=== PATIENT | female | born 1960 | race Caucasian/White ===

== ENCOUNTER 2019-04-17 09:20 | Outpatient (CLI) | payer OTHER, SELFPAY ==
--- NOTE | 2019-04-17 09:22 | MM_ITS ---
WS: [id number] DIAGNOSTIC RIGHT DIGITAL MAMMOGRAM WITH CAD and displacement views. HISTORY: LEFT mastectomy. RIGHT breast implant. COMPARISON: 12/07/2017, 01/21/2016 and 08/13/2013 Technique: CC, MLO and ML views. Implant displacement views. Breast composition: The breast is heterogeneously dense, which may obscure small masses. Implant is prepectoral implant. No collapse. Dense fibroglandular tissue is within the anterior breast. There ar e no suspicious masses or calcifications or interval change. MM/[place] [id number] IMPRESSION: BI-RADS: 2-Benign FOLLOW UP: 1 Year Follow-up
== END 2019-04-17 09:21 | disposition home or self-care (01) ==
LOC: RADSHAW 09:21
PROVIDERS: Family Provider Nurse Practitioner Family; PCP Nurse Practitioner Family; Visit Provider Nurse Practitioner Family
DX: Z85.3 Personal history of malignant neoplasm of breast (principal)
CPT/HCPCS: 77065

== ENCOUNTER 2020-12-17 11:42 | Outpatient (CLI) | payer OTHER, SELFPAY ==
--- NOTE | 2020-12-17 11:45 | MM_ITS ---
WS: [id number] RIGHT diagnostic MAMMOGRAM WITH GEO DISPLACEMENT VIEWS. CAD PERFORMED. HISTORY: HX OF BREAST CA COMPARISON: 04/17/2019, 12/07/2017 Bilateral craniocaudal and mediolateral like views are performed. Geo displacement views in CC and MLO projection also performed. Breasts composition: There are scattered areas of fibroglandular density. Breast implant is intact. No suspicious masses or calcifications or interval change. Very dense fibro glandular tissue within the anterior breast. MM/[place] [id number] IMPRESSION: BI-RADS: 2-Benign FOLLOW-UP: 1 Year Follow-up
== END 2020-12-17 11:43 | disposition home or self-care (01) ==
LOC: RADSHAW 11:44
PROVIDERS: PCP Nurse Practitioner; Visit Provider Nurse Practitioner
DX: Z85.3 Personal history of malignant neoplasm of breast (principal)
CPT/HCPCS: 77065

== ENCOUNTER → 2022-01-13 13:16 | Outpatient (BNVA) | payer MEDICAID, SELFPAY | PROVIDERS: PCP Nurse Practitioner; Visit Provider Podiatrist Foot & Ankle Surgery | DX: M20.21 Hallux rigidus, right foot (principal); Q82.8 Other specified congenital malformations of skin; M19.071 Primary osteoarthritis, right ankle and foot; M21.611 Bunion of right foot | CPT/HCPCS: 73630 ==

== ENCOUNTER 2022-02-03 11:54 | Outpatient (CLI) | payer MEDICAID, SELFPAY ==
--- NOTE | 2022-02-03 12:19 | US_ITS ---
WS: [id number] INDICATION: Lump RIGHT upper extremity TECHNIQUE: Ultrasound soft tissue area of concern. FINDINGS: 2 echogenic shadowing foci in the area of concern RIGHT posterior lower arm measuring 4 to 6 mm in the subcutaneous soft tissues. These are nonspecific but may represent small subcutaneous alexander cified granulomas. No drainable fluid collection or abscess. US/US soft tissue/extremity [id number] IMPRESSION: 2 echogenic shadowing foci in the area of concern RIGHT posterior l ower arm measuring 4 to 6 mm. These are nonspecific but may represent small sub cutaneous calcified granulomas. Recommend correlation with history of foreign b je in this location.
--- NOTE | 2022-02-03 12:42 | MM_ITS ---
WS: [email or web address] RIGHT 3D TOMOSYNTHESIS DIGITAL MAMMOGRAPHY WITH CAD CLINICAL INFORMATION: HX OF BREAST CA HISTORY: LEFT mastectomy. COMPARISON: 2020 TECHNIQUE: 3 views of the right breast were obtained. FINDINGS: The right breast is composed of heterogeneous fibroglandular density tissue, which can limit the dete ction of small underlying mass lesions. Breast implant is intact. Stable dense fibroglandular tissue in the anterior RIGHT breast. A few tiny punctate calcifications anterior RIGHT breast. No suspicious focal mass, asymmetry, calcifications, or architectural distortion. No evidence of mary gnancy. MM/[place] [id number] IMPRESSION: BI-RADS: 2-Benign FOLLOW UP: 1 Year Follow-up Recommend return to annual diagnostic mammography.
== END 2022-02-03 11:55 | disposition home or self-care (01) ==
LOC: RAD 11:55
PROVIDERS: PCP Nurse Practitioner; Visit Provider Nurse Practitioner
DX: Z85.3 Personal history of malignant neoplasm of breast (principal); R22.31 Localized swelling, mass and lump, right upper limb
CPT/HCPCS: 76882; 77061; G0279

== ENCOUNTER → 2022-03-05 11:56 | Outpatient (BNVA) | payer MEDICAID, SELFPAY | PROVIDERS: PCP Nurse Practitioner; Visit Provider Nurse Practitioner | DX: J44.1 Chronic obstructive pulmonary disease with (acute) exacerbation (principal) | CPT/HCPCS: 71046 ==

== ENCOUNTER 2022-03-25 05:59 | Day surgery (SDC) | payer MEDICAID, SELFPAY ==
[2022-03-24 11:25] VITALS: BMI 23.8
--- NOTE | 2022-03-25 | XR_ITS ---
WS: [email or web address] XR foot RT 2V [id number] REASON FOR EXAM: Right 1st MTPJ fusion FINDINGS: Image demonstrates plate and screw arthrodesis of the first MTP joint with osteotomy of the distal fi rst metatarsal. Surgical surgical appliances are in proper position and alignment. The joint alignment is appropriate . XR/XR foot RT 2V [id number] IMPRESSION: Right first MTP arthrodesis and osteotomy without abnormality.
[2022-03-25 06:19] VITALS: BP 145/90; PULSE 96; RESP 18; TEMP 36.3; O2SAT 94
[2022-03-25] MEDS: sodium chloride 0.9% 1,000 ML 30 ML IV (06:31)
[2022-03-25] MEDS: gabapentin 300 mg Capsule PO (06:32)
[2022-03-25] MEDS: CELEcoxib 200 mg Capsule 400 MG PO (06:32)
--- NOTE | 2022-03-25 06:38 | W.PM.OPSUD ---
Surgery/Procedure H&P Update DATE OF PROCEDURE: March 25, 2022 DATE H&P PERFORMED: 03/17/22 CHANGES TO PREVIOUS DOCUMENTATION: No changes PREOP DIAGNOSIS: Right foot hallux rigidus PLANNED PROCEDURE: Operation Date: 03/25/22 07:00 Proposed Procedures p Right 1st MTPJ fusion?04767,M20.21(Right) - Justin Burk DPM
[2022-03-25] MEDS: clindamycin 600 MG/50 ML PREMIX 100 MG IV (07:00)
--- NOTE | 2022-03-25 08:21 | ANES.PREANE2 ---
Pre-Anesthetic Assessment Height/Weight: Height 1.65 m Weight 64.864 kg Temp Pulse Resp BP Pulse Ox O2 Del Method 97.4 F L 96 18 145/90 94 03/25/22 06:19 03/25/22 06:19 03/25/22 06:19 03/25/22 06:19 03/25/22 06:19 03/25/22 06:19 Preop Diagnosis: Right foot hallux rigidus Operation Date: 03/25/22 07:00 Proposed Procedures p Right 1st MTPJ fusion?86957,M20.21(Right) - Justin Burk DPM Familial anesthetic complications: none Was Beta Tamara taken within 24 hours: N/A Was Clonidine taken within 24 hours: N/A Last intake: Intake Last Liquid Date 03/24/22 Last Liquid Time 23:30 Last Solid Date 03/24/22 Last Solid Time 20:00 Social Tobacco and No alcohol Exam alert, oriented x 3 and regular rate & rhythm rhonchi Airway Submandibular: within normal limits Cervical ROM: within normal limits Mallampati: Class II Dentition: chipped Pulmonary Chronic Obstructive Pulmonary Disease CV/HEM Hypertension Metabolic Hyperlipidemia Anesthetic Plan ASA status: 3 Anesthesia: Choice Medications/Allergies Home Medications Medication Instructions Recorded Confirmed Last Taken Type lisinopril 10 mg tablet 10 mg PO DAILY 01/13/22 03/24/22 03/24/22 History albuterol sulfate 90 mcg/actuation 2 inh inhalation Q4H PRN Allergy 03/09/22 03/25/22 03/25/22 04:30 History breath activated powder inhaler Symptoms atorvastatin 10 mg tablet 10 mg PO DAILY 03/09/22 03/24/22 03/24/22 History fluticasone propionate 50 1 spray intranasal DAILY 03/09/22 03/24/22 Unknown History mcg/actuation nasal spray,suspension (Flonase Allergy Relief) umeclidinium 62.5 mcg-vilanterol 1 inh inhalation Q24H 03/09/22 03/25/22 03/25/22 04:30 History 25 mcg/actuation powdr for inhalation (Anoro Ellipta) Crutches #1 ea 03/17/22 03/17/22 Unknown Rx Allergies Allergy/AdvReac Type Severity Reaction Status Date / Time morphine Allergy ALGY-Anaphy Verified 03/25/22 06:24 laxis Penicillins Allergy ADR-Back Verified 03/25/22 06:24 Pain Current Medications Generic Name Dose Route Start Last Admin Trade Name Lavellq PRN Reason Stop Dose Admin Sodium Chloride 1,000 mls @ 30 mls/hr 03/25/22 06:15 03/25/22 06:31 Sodium Chloride 0.9% IV 03/26/22 06:14 30 mls/hr .Q24H DELMAR Administration PFSH Anesthesia Family History Mother Hypertension Father Hypertension Social History Smoking and tobacco status: current every day smoker cigarettes Packs smoked per day: 0.5 Alcohol intake: current Alcohol intake frequency: few times a week Data Anesthesia Cardiac Studies: No Data to Display
[2022-03-25 08:45] VITALS: BP 121/83; PULSE 96; RESP 18; TEMP 36.2; O2SAT 95
[2022-03-25 08:49] VITALS: BP 128/103; PULSE 97; RESP 18; O2SAT 98
[2022-03-25 08:55] VITALS: BP 141/91; PULSE 97; RESP 17; TEMP 36.3; O2SAT 96
[2022-03-25 09:21] VITALS: BP 130/93; PULSE 91; RESP 18; TEMP 36.1; O2SAT 95
--- NOTE | 2022-03-25 10:28 | P.PCN_ITS ---
PACU note Narrative: VSS, Good respiratory effort, report to INFORMATION SERVICES CONSULTANT Exam: awake
--- NOTE | 2022-03-25 10:28 | PM.PACU ---
PACU note Narrative: VSS, Good respiratory effort, report to CORE DRIER Exam: awake
--- NOTE | 2022-03-25 15:13 | ANE.PACU2 ---
Inpatient post-anesthesia follow up: Airway intact: Yes Vital signs: Temperature 97 F Pulse Rate 91 Respiratory Rate 18 Blood Pressure 130/93 Pulse Oximetry 95 Oxygen Delivery Me thod Room Air Oxygen Flow Rate Fraction of Inspir ed Oxygen Hydration adequate: Yes Nausea and vomiting: No Pain level: 2 Mental status: Baseline
--- NOTE | 2022-03-25 16:40 | PM.OP ---
Operative Report Date of procedure: March 25, 2022 Pre-op diagnosis: Preop Diagnosis Right foot hallux rigidus Post-op diagnosis: Same Post-op findings: Severely degenerative first metatarsophalangeal joint of right foot with extensive periarticular osteophyte formation Procedure done: Right foot first metatarsophalangeal joint arthrodesis CPT 44770 Implants: One 5 degree medial first metatarsophalangeal joint arthrodesis plate from [employer] with corresponding 3.5 mm locking and nonlocking screws Surgeon: Dr. Justin Burk, D.P.MTrell Estimated blood loss: Less than 10 cc 75 minutes Complications: None Findings: See above Procedure: Patient is a 62-year-old female that has a history of right hallux rigidus. The patient has had the aforementioned chief complaint for some time. Conservative treatment measures have been attempted and the patient has opted for surgical intervention at this time. A lengthy discussion regarding the procedure, including risks and complications has been had with the patient and is noted in the recent clinic note. Written and verbal consent have been obtained. All patient questions have been answered to the patient?s satisfaction. No written or verbal guarantees have been given or implied. The patient has been NPO since midnight. The history has been reviewed and the history and physical is current. The signed consent was confirmed and placed in the patient chart. Patient imaging has been reviewed and is consistent with the diagnosis. Under mild sedation, the patient was brought into the operating room and placed on the table in the supine position. IV antibiotics were given by the anesthesia team as preoperative surgical prophylaxis. IV sedation was then performed by the anesthesiateam. A pneumatic tourniquet was then placed about the right ankle. Local field block was then performed using 0.5% Marcaine plain. The operative extremity was then prepped and draped in the usual fashion. The extremity was then elevated and exsanguinated before the tourniquet was inflated to 250 mmHg. After inflation, the following procedure was then performed. Attention was directed to the right first metatarsophalangeal joint where a 4.5 cm incision was made dorsally using a #15 blade. Dissection was carried down through subcutaneous and superficial fascia to the level of the first metatarsophalangeal joint capsule. Any bleeders were cauterized as necessary using electrocautery. Care was taken to preserve the extensor hallucis longus tendon as well as the medial neurovascular bundle. #15 blade was used to incise the first metatarsophalangeal joint thus exposing the underlying first metatarsal phalangeal joint. Dissection was further carried out using a #15 blade to expose the entirety of the first metatarsophalangeal joint and the head of the first metatarsal. There was noted to be erosive changes in the head of the first metatarsal consistent with arthritis. There is also noted to be periarticular spurring. Using a sagittal bone saw the osteophytes at the first metatarsal head were removed and passed from the operative field. Next a 0.062 K wire was driven into the head of the first metatarsal centrally before a concave reamer was placed over the wire and used to ream the first metatarsal head. After reaming, all articular cartilage from the head of the first metatarsal was noted to be removed duration for arthrodesis. Next a 0.062 K wire was removed and driven into the base the proximal phalanx centrally. A corresponding convex reamer was used to remove the articular cartilage from the base the proximal phalanx preparation for arthrodesis. Next the site was irrigated with copious muscle sterile saline before K wire was used to fenestrate the head of first metatarsal base the proximal phalanx. The hallux was then positioned into the appropriate position clinically as well as radiographically which was confirmed on C-arm fluoroscopy. The dorsal first metatarsophalangeal joint plate from [employer] was then positioned into the appropriate position and temporarily fixated using olive wires. Good positioning of the plate was noted clinically as well as on C-arm imaging. A 3.5 mm lag screw was then driven across the arthrodesis site to provide compression and a distal medial to proximal lateral orientation. The first metatarsophalangeal joint arthrodesis plate was then drilled and filled in standard fashion. Final C arm images were obtained to confirm the positioning of the plate and screws, they were noted to be in the appropriate position. Incision site was then irrigated with copious amounts sterile saline before attention was directed to closure. Deep tissue was closed with 3-0 Vicryl followed by subcuticular closure with 4-0 Vicryl and skin closed with 4-0 nylon. The incision site was dressed with Xeroform, 4 x 4 gauze, Kerlix before being placed in a well-padded below the knee posterior splint. The patient tolerated the procedure and anesthesia well and without complication. The patient was transported from the operating room to the recovery room with vital signs stable and vascular status intact to all digits of the right foot. The patient was given both written and verbal instructions to remain nonweightbearing to the operative extremity, to keep dressings/splint clean, dry and intact and to take pain medication as directed. The patient will follow-up in the outpatient setting at their scheduled appointment. The patient was discharged with my personal number and was instructed to call if any questions or issues should arise. They were discharged home once anesthesia criteria was met.
== END 2022-03-25 09:45 | disposition home or self-care (01) ==
PROVIDERS: PCP Nurse Practitioner; Visit Provider Podiatrist Foot & Ankle Surgery
PROC: (CPT 28750; principal; 2022-03-25 07:00)
DX: M20.21 Hallux rigidus, right foot (principal); J44.9 Chronic obstructive pulmonary disease, unspecified; I10 Essential (primary) hypertension; E78.5 Hyperlipidemia, unspecified; F17.210 Nicotine dependence, cigarettes, uncomplicated; M79.671 Pain in right foot; Q82.8 Other specified congenital malformations of skin
CPT/HCPCS: 28750; 73620; 76000; C1713; J2704; J3010; J3490; J7030

== ENCOUNTER → 2022-04-07 10:26 | Outpatient (BNVA) | payer MEDICAID, SELFPAY | PROVIDERS: PCP Nurse Practitioner; Visit Provider Podiatrist Foot & Ankle Surgery | DX: M20.21 Hallux rigidus, right foot (principal); Q82.8 Other specified congenital malformations of skin | CPT/HCPCS: 73630 ==

== ENCOUNTER 2022-04-07 11:05 | Outpatient (CLI) | payer MEDICAID, SELFPAY | END 2022-04-07 11:06 | disposition home or self-care (01) | LOC: SPT 11:05 | PROVIDERS: PCP Nurse Practitioner; Visit Provider Podiatrist Foot & Ankle Surgery | DX: Z46.89 Encounter for fitting and adjustment of other specified devices (principal); M20.21 Hallux rigidus, right foot; M79.671 Pain in right foot | CPT/HCPCS: 97760; L4361 ==

== ENCOUNTER → 2022-04-21 11:23 | Outpatient (BNVA) | payer MEDICAID, SELFPAY | PROVIDERS: PCP Nurse Practitioner; Visit Provider Podiatrist Foot & Ankle Surgery | DX: M20.21 Hallux rigidus, right foot (principal); Z98.890 Other specified postprocedural states; Q82.8 Other specified congenital malformations of skin | CPT/HCPCS: 73630 ==

== ENCOUNTER → 2022-05-12 13:03 | Outpatient (BNVA) | payer MEDICAID, SELFPAY | PROVIDERS: PCP Nurse Practitioner; Visit Provider Podiatrist Foot & Ankle Surgery | DX: Z98.890 Other specified postprocedural states (principal); M20.21 Hallux rigidus, right foot; Q82.8 Other specified congenital malformations of skin | CPT/HCPCS: 73630 ==

== ENCOUNTER → 2022-09-16 15:57 | Outpatient (BNVA) | payer MEDICAID, SELFPAY | PROVIDERS: PCP Nurse Practitioner; Visit Provider Internal Medicine Cardiovascular Disease | DX: R07.9 Chest pain, unspecified (principal); Z79.01 Long term (current) use of anticoagulants; N18.9 Chronic kidney disease, unspecified; R06.02 Shortness of breath | CPT/HCPCS: 36415; 80048; 83880; 84443; 85025; 93005 ==

== ENCOUNTER 2022-11-24 11:40 | Outpatient (CLI) | payer MEDICAID, SELFPAY ==
--- NOTE | 2022-11-24 11:45 | USCV_ITS ---
Denae Cuello Age: 62 Gender: F : 1960 Exam Date: 11/24/2022 11:49 Ordering Phys: Alfie Buck MD ([email or web address]) Technologist: [email or web address] Exam Location: [facility] Indication: chest pain BP: 120 / 87 HR: 82 Rhythm: Sinus Technical Quality: Adequate MEASUREMENTS (Male / Female) Normal Values 2D ECHO LV Diastolic Diameter PLAX 3.1 cm 4.2 - 5.9 / 3.9 - 5.3 cm LV Systolic Diameter PLAX 2.4 cm LV Chamber Size 2.6 cm IVS Diastolic Thickness 1.4 cm 0.6 - 1.0 / 0.6 - 0.9 cm IVS Systolic Thickness 1.4 cm LVPW Diastolic Thickness 1.4 cm 0.6 - 1.0 / 0.6 - 0.9 cm LVPW Systolic Thickness 1.9 cm RV Chamber Size 2.7 cm LVOT Diameter 2.0 cm LV Ejection Fraction 2D Teich 47.3 % LV Ejection Fraction MOD 2C 70.0 % LV Ejection Fraction 2C AL 70.1 % LA Diameter 2.7 cm LA Width 2.3 cm LA Height 3.1 cm RA Width 3.2 cm RA Height 4.0 cm Aorta at Sinotubular Diameter 3.4 cm IVC Diameter 1.5 cm M-MODE Aortic Annulus Diameter 3.5 cm LA Ao Ratio MM 0.9 MV E Point Septal Separation 0.4 cm DOPPLER AV Peak Velocity 115.0 cm/s LVOT Peak Velocity 86.0 cm/s AV Area Cont Eq vti 2.2 cm squared AV Area Cont Eq pk 2.4 cm squared MV Area PHT 5.1 cm squared Mitral E to A Ratio 0.6 MV E' Velocity 31.0 cm/s Mitral E to MV E' Ratio 7.1 Mitral E to LV E' Lateral Ratio 6.1 Mitral E to LV E' Septal Ratio 8.6 TR Peak Velocity 191.7 cm/s TR Peak Gradient 14.7 mmHg TR Mean Velocity 139.9 cm/s TR Mean Gradient 9.2 mmHg TR Velocity Time Integral 48.1 cm TV Peak E Velocity 48.0 cm/s Right Atrial Pressure 3.0 mmHg Pulmonary Artery Systolic Pressu 17.7 mmHg RV Acceleration Time 0.2 s RV Ejection Time 0.3 s RV AcT/ET 0.6 FINDINGS Left Ventricle Normal left ventricular size and systolic function, EF 55 %. No regional wall motion abnormalities. Right Ventricle The right ventricle is normal in size and function. Right Atrium The right atrium is normal in size. Left Atrium The left atrium is normal in size. Mitral Valve No gross abnormalities noted Aortic Valve Trace aortic valve regurgitation. Tricuspid Valve Trace tricuspid valve regurgitation. Pulmonic Valve No gross abnormalities noted Pericardium Normal pericardium without effusion. Aorta Normal ascending aorta dimension. IVC Normal inferior vena cava. CONCLUSIONS Normal left ventricular size and systolic function, EF 55 %. No regional wall motion abnormalities. Trace aortic valve regurgitation. Trace tricuspid valve regurgitation. Estimated pulmonary artery peak systolic pressure within normal Normal cardiac chamber sizes There is no pericardial effusion. There are no intracardiac masses. No similar previous studies are available for comparison Dr Alfie Buck MD [facility] (Electronically Signed) Final Date: 26 November 2022 11:53 S
== END 2022-11-24 11:41 | disposition home or self-care (01) ==
PROVIDERS: PCP Nurse Practitioner; Visit Provider Internal Medicine Cardiovascular Disease
DX: R06.09 Other forms of dyspnea (principal); R07.9 Chest pain, unspecified
CPT/HCPCS: 93306

== ENCOUNTER 2023-03-10 14:10 | Outpatient (CLI) | payer MEDICAID, SELFPAY ==
--- NOTE | 2023-03-10 14:16 | MM_ITS ---
WS: [id number] Right breast diagnostic 3D tomosynthesis digital mammogram, 03/10/2023 Clinical Data: HX OF BREAST CA Comparison: 02/03/2022, 12/17/2020, 04/17/2019, 12/07/2017, 01/21/2016, 08/13/2013, 07/08/2010, 04/16/2009. Findings: The right breast shows heterogeneous density. There is an intact right breast augmentation mammoplast y implants. No secondary signs of carcinoma or clustered calcifications are seen. No masses are noted in the right breast. Impression: 1. Negative right breast mammogram. 2. Intact right breast augmentation mammoplasty. 3. Recommend yearly right breast mammogram MM/[place] [id number] BIRADS: 2-Benign FOLLOW UP: 1 Year Follow-up The CAD purchase order checker was used.
--- NOTE | 2023-03-10 14:16 | XR_ITS ---
WS: [email or web address] DEXA (DUAL ENERGY X-RAY ABSORPTIOMETRY) Bone mineral density was performed using a Betify machine. HISTORY: POSTMENOPAUSAL COMPARISON: None available. Lumbar spine BMD (L1-L4): 1.450 g/cm2 T score: 2.3 Z score: 3.6 Total hip BMD: Left: 0.984 g/cm2. T score: -0.2 Z score: 0.8 Right: 0.973 g/cm2. T score: -0.3 Z score: 0.8 10 year probability of a major osteoporotic fracture is 6.2%. RIGHT scoliosis and curvature with asymmetric disc space narrowing lumbar spine. IMPRESSION: NORMAL BONE MINERAL DENSITY based upon the WHO classification for females.
== END 2023-03-10 14:11 | disposition home or self-care (01) ==
LOC: RAD 14:11
PROVIDERS: PCP Nurse Practitioner; Visit Provider Nurse Practitioner
DX: Z85.3 Personal history of malignant neoplasm of breast (principal); Z78.0 Asymptomatic menopausal state
CPT/HCPCS: 77061; 77080; G0279

== ENCOUNTER → 2023-08-03 15:41 | Outpatient (BNVA) | payer MEDICAID, SELFPAY | PROVIDERS: PCP Nurse Practitioner; Visit Provider Internal Medicine Cardiovascular Disease | DX: R06.02 Shortness of breath (principal); I49.9 Cardiac arrhythmia, unspecified; I50.9 Heart failure, unspecified; I10 Essential (primary) hypertension; E78.5 Hyperlipidemia, unspecified | CPT/HCPCS: 36415; 80048; 83880 ==

== ENCOUNTER 2023-08-30 12:54 | Outpatient (CLI) | payer MEDICAID, SELFPAY ==
--- NOTE | 2023-08-30 12:59 | XR_ITS ---
WS: [id number] Exam: XR lumbar spine f/e only [id number] Date/Time of Exam: 08/30/2023 1:19 PM Reason For Exam: LOW BACK PAIN No acute fracture. Degenerative disc narrowing noted at all levels but most severe at L2-3. Degenerat milo anterolisthesis of L4 on L5 of about 7 mm most accentuated in extension. No other areas of instab ility. There is spondylosis. There is facet arthropathy from L3-S1. XR/XR lumbar spine f/e only [id number] IMPRESSION: 1. 7 mm degenerative anterolisthesis of L4 on L5 accentuated in extension. 2. No other significant instability noted. 3. Moderately advanced degenerative changes as detailed above.
== END 2023-08-30 12:55 | disposition home or self-care (01) ==
LOC: RAD 12:54
PROVIDERS: PCP Nurse Practitioner; Visit Provider Nurse Practitioner
DX: M48.02 Spinal stenosis, cervical region (principal); M48.061 Spinal stenosis, lumbar region without neurogenic claudication; M48.08 Spinal stenosis, sacral and sacrococcygeal region; M48.04 Spinal stenosis, thoracic region; M43.16 Spondylolisthesis, lumbar region; M47.9 Spondylosis, unspecified; M47.817 Spondylosis without myelopathy or radiculopathy, lumbosacral region; Z85.3 Personal history of malignant neoplasm of breast
CPT/HCPCS: 72120

== ENCOUNTER 2023-10-19 14:09 | Outpatient (CLI) | payer MEDICAID, SELFPAY ==
--- NOTE | 2023-10-19 14:15 | MR_ITS ---
WS: [id number] MRI LUMBAR SPINE NONCONTRAST HISTORY: DDD LUMBAR/ANTEROLISTHESIS OF LUMBAR SPINE COMPARISON: None available. TECHNIQUE: Sagittal and axial multisequence imaging is submitted. Mild RIGHT rotary scoliosis. Disc spaces are narrowed. Most significant disc degeneration at L2-3. 2 mm anterolisthesis of L3 and L4. No acute fractures. There is reactive marrow edema at L2 and L3. Conus terminates normally at L1-2 disc level. L1-L2: Moderate diffuse annular disc bulging with mild osteophytic ridging and facet disease. Shallow RIGHT foraminal disc protrusion. Mild central, bilateral subarticular recess and foraminal stenosis. L2-L3: Marked annular disc bulging with osteophytic ridging. Annular fissure centrally within the dis c. Ligamentum flavum and facet arthritis. Moderate central, bilateral subarticular recess and foramin al stenosis. Most significant encroachment upon the traversing LEFT L3 nerve root. L3-L4: Marked annular disc bulging with severe ligamentum flavum and facet arthritis. Severe central, bilateral subarticular recess and moderate foraminal stenosis. L4-L5: Marked annular disc bulging with osteophytic ridging, ligamentum flavum and facet arthritis. S evere central, bilateral subarticular recess and moderate foraminal stenosis, LEFT greater than RIGHT . L5-S1: Diffuse annular disc bulging with severe facet joint arthritis, RIGHT greater than LEFT. There is disc contacting and displacing the RIGHT S1 nerve root. Complete effacement of fat in the RIGHT f oramen. Severe right-sided facet stenosis with a disc protrusion. Moderate LEFT foraminal stenosis. Paravertebral soft tissues are normal. MR/MR lumbar spine wo con* [id number] IMPRESSION: 1. Degenerative RIGHT rotoscoliosis lumbar spine. 2. L4-5: Severe central, bilateral subarticular recess and moderate foraminal stenosis, LEFT greater than RIGHT. 3. L5-S1: Disc contacting the RIGHT S1 nerve root. Severe RIGHT foraminal sten osis and moderate LEFT foraminal stenosis. 4. L3-4: Severe central, bilateral subarticular recess and moderate foraminal stenosis. 5. L2-3: Moderate central, bilateral subarticular recess and foraminal stenosi s. 6. L1-2: Mild central, bilateral subarticular recess and foraminal stenosis.
== END 2023-10-19 14:10 | disposition home or self-care (01) ==
LOC: RAD 14:11
PROVIDERS: PCP Nurse Practitioner; Visit Provider Nurse Practitioner
DX: M43.16 Spondylolisthesis, lumbar region (principal); M51.36 Other intervertebral disc degeneration, lumbar region; M41.86 Other forms of scoliosis, lumbar region; M99.63 Osseous and subluxation stenosis of intervertebral foramina of lumbar region; M25.78 Osteophyte, vertebrae
CPT/HCPCS: 72148

== ENCOUNTER 2024-04-04 11:30 | Outpatient (CLI) | payer MEDICAID, SELFPAY ==
--- NOTE | 2024-04-04 11:39 | MM_ITS ---
WS: [id number] VIEWS: MLO, CC, and ML views RIGHT breast. Also implant displacement MLO, CC and ML views of the RIG HT breast were included.. 3D digital tomosynthesis is also included in this exam. Comparison made with prior exam of 01/21/2016, 12/07/2017, 04/17/2019, 12/17/2020, 02/03/2022, 0, 07/08/2010, 08/13/2013, 03/10/2023.. Findings: The breasts are extremely dense, which lowers the sensitivity of mammography. No suspicious mass, tumor calcification or architectural distortion noted. MM/MM diag RT tomosynthesis [id number] Impression: BI-RADS: 2 - Benign FOLLOW-UP: 1 Year Follow-up This mammogram was also analyzed by the Computer Aided Detection System R2 Imag e Price Clerk.
== END 2024-04-04 11:37 | disposition home or self-care (01) ==
PROVIDERS: PCP Nurse Practitioner; Visit Provider Nurse Practitioner
DX: Z85.3 Personal history of malignant neoplasm of breast (principal); R92.343 Mammographic extreme density, bilateral breasts
CPT/HCPCS: 77061; G0279

== ENCOUNTER → 2024-04-18 11:08 | Outpatient (BNVA) | payer MEDICAID, SELFPAY | PROVIDERS: PCP Nurse Practitioner; Visit Provider Podiatrist Foot & Ankle Surgery | DX: M79.671 Pain in right foot (principal); Q82.8 Other specified congenital malformations of skin | CPT/HCPCS: 73630 ==

== ENCOUNTER 2024-07-02 06:08 | Day surgery (SDC) | payer MEDICAID, SELFPAY ==
[2024-07-02] VITALS (7 sets, daily range): BP systolic 119–152; BP diastolic 88–106; PULSE 75–83; RESP 15–18; TEMP 36.1–36.4; O2SAT 94–98
[2024-07-02] MEDS: sodium chloride 0.9% 1,000 ML 30 ML IV (06:36)
[2024-07-02] MEDS: CELEcoxib 200 mg Capsule 400 MG PO (06:37)
[2024-07-02] MEDS: gabapentin 300 mg Capsule PO (06:40)
--- NOTE | 2024-07-02 06:48 | W.PM.OPSUD ---
Surgery/Procedure H&P Update DATE OF PROCEDURE: July 02, 2024 DATE H&P PERFORMED: 06/20/24 H&P UPDATE INFORMATION: I have reviewed H&P completed within last 30 days, I have examined patient prior to procedure, No changes to prior documentation, H&P is in [facility] EMR on date indicated and Risks and benefits of the procedure reviewed PREOP DIAGNOSIS: Painful orthopedic hardware PLANNED PROCEDURE: Operation Date: 07/02/24 07:00 Proposed Procedures p Hardware Removal Right Foot(Right) - SALMA Purcell Mina Osteotomy Right Foot(Right) - SALMA Purcell Right second hammertoe repair(Right) - SALMA Purcell Arthrodesis Foot PIPJ Arthrodesis(Right) - SALMA Purcell Right second digit flexor to extensor tendon transfer(Right) - SALMA Purcell Right second metatarsal Dora osteotomy and Right 4th Metatarsal Osteotomy(Right) - Justin Burk DPM
[2024-07-02] MEDS: clindamycin 600 MG/50 ML PREMIX 100 MG IV (06:58)
--- NOTE | 2024-07-02 07:12 | ANES.PREANE2 ---
Pre-Anesthetic Assessment Height/Weight: Height 1.65 m Weight 67.132 kg Temp Pulse Resp BP Pulse Ox O2 Del Method 97.5 F L 83 16 130/106 97 Room Air 07/02/24 06:25 07/02/24 06:25 07/02/24 06:25 07/02/24 06:25 07/02/24 06:25 07/02/24 06:25 Preop Diagnosis: Painful orthopedic hardware Operation Date: 07/02/24 07:00 Proposed Procedures p Hardware Removal Right Foot(Right) - SALMA Purcell Mina Osteotomy Right Foot(Right) - SALMA Purcell Right second hammertoe repair(Right) - SALMA Purcell Arthrodesis Foot PIPJ Arthrodesis(Right) - SALMA Purcell Right second digit flexor to extensor tendon transfer(Right) - SALMA Purcell Right second metatarsal Dora osteotomy and Right 4th Metatarsal Osteotomy(Right) - Justin Burk DPM Familial anesthetic complications: NOne Was Beta Tamara taken within 24 hours: N/A Was Clonidine taken within 24 hours: N/A Last intake: Intake Last Liquid Date 07/01/24 Last Liquid Time 23:30 Last Solid Date 07/01/24 Last Solid Time 23:30 Social No alcohol Exam alert, oriented x 3, clear to auscultation bilaterally and regular rate & rhythm Airway Mallampati: Class II Dentition: full Pulmonary Chronic Obstructive Pulmonary Disease CV/HEM Congestive Heart Failure, Hypertension and Palpitations Anesthetic Plan ASA status: 3 Anesthesia: General Risk of > 500 ml blood loss (7ml/kg in children): No Medications/Allergies Home Medications ?Medication ?Instructions ?Recorded ?Confirmed ?Last Taken ?Type lisinopril 10 mg tablet 10 mg PO DAILY 01/13/22 07/02/24 07/02/24 History albuterol sulfate 90 mcg/actuation 2 inh inhalation Q4H PRN Allergy 03/09/22 07/02/24 05/08/24 History breath activated powder inhaler Symptoms atorvastatin 10 mg tablet 10 mg PO DAILY 03/09/22 07/02/24 07/02/24 History fluticasone propionate 50 1 spray intranasal DAILY 03/09/22 07/02/24 05/10/24 History mcg/actuation nasal spray,suspension (Flonase Allergy Relief) umeclidinium 62.5 mcg-vilanterol 1 inh inhalation Q24H 03/09/22 07/02/24 07/01/24 History 25 mcg/actuation powdr for inhalation (Anoro Ellipta) potassium chloride 10 mEq 10 meq PO BID #60 caps 10/25/23 07/02/24 07/01/24 Rx capsule,extended release fluorouracil 5 % topical cream 1 applic topical BID 4 weeks #40 04/26/24 07/02/24 Unknown Rx (Efudex) grams furosemide 20 mg tablet 20 mg PO BID #60 tabs 06/20/24 07/02/24 07/01/24 Rx hydrocodone 5 mg-acetaminophen 325 1 tab PO Q6H PRN pain #28 tabs 07/02/24 Unknown Rx mg tablet Allergies Allergy/AdvReac Type Severity Reaction Status Date / Time morphine Allergy ALGY-Anaphy Verified 06/20/24 13:16 laxis Penicillins Allergy ADR-Back Verified 06/20/24 13:16 Pain Current Medications Generic Name Dose Route Start Last Admin Trade Name Freq PRN Reason Stop Dose Admin Sodium Chloride 1,000 mls @ 30 mls/hr 07/02/24 06:15 07/02/24 06:36 Sodium Chloride 0.9% IV 07/03/24 06:14 30 mls/hr .Q24H DELMAR Administration PFSH Anesthesia Medical History Varicose veins of lower extremity Family History Mother Hypertension Father Hypertension Social History Smoking and tobacco/nicotine status: never used tobacco/nicotine Alcohol intake: current Alcohol intake frequency: few times a week Substance/Drug Use: never Lives independently: Yes Household members: spouse Marital status: Number of children: 2 Pets and animals: Yes Pets & animals: dog(s) Data Anesthesia Cardiac Studies: Echocardiogram 11/24/22 Cardiac Event Monitor 12/30/22
[2024-07-02] MEDS: BUPivacaine 0.5% INJ 30 mL XX (07:28)
--- NOTE | 2024-07-02 08:42 | P.OP_ITS ---
Operative Report Date of procedure: July 02, 2024 Surgeon: Justin Burk DPM Procedure: Date of procedure: 07/02/2024 Pre-op diagnosis: Orthopedic hardware right foot, right foot second digit hammertoe, metatarsalgia, hallux valgus Post-op diagnosis: Same Post-op findings: Hallux valgus, hammertoe second digit, prominent metatarsal heads right foot Procedure done: 1. Hardware removal right foot CPT 17720 2. Mina osteotomy right foot CPT 12822 3. Second metatarsal Dora osteotomy right foot CPT 97090 4. Second digit proximal interphalangeal joint arthrodesis right foot CPT 54238 5. Flexor to extensor tendon transfer right foot second digit CPT 04169 6. Right foot fourth metatarsal distal metatarsal osteotomy CPT 97816 Implants: 2.0 snap off screw [employer], 13 x 10 [place] staple [employer], 0.065 K wire Specimens removed: None Surgeon: Dr. Justin Burk DPM Site Superintendent: Juan Antonio Estimated blood loss: 5 cc Tourniquet time: 71 minutes Complications: None Patient is a 64-year-old female that has a history of right foot hallux valgus, painful orthopedic hardware, hammertoe second digit, metatarsalgia. The patient has had the aforementioned chief complaint for some time. Conservative treatment measures have been attempted and the patient has opted for surgical intervention at this time. A lengthy discussion regarding the procedure, including risks and complications has been had with the patient and is noted in the recent clinic note. Written and verbal consent have been obtained. All patient questions have been answered to the patient?s satisfaction. No written or verbal guarantees have been given or implied. The patient has been NPO since midnight. The history has been reviewed and the history and physical is current. The signed consent was confirmed and placed in the patient chart. Patient imaging has been reviewed and is consistent with the diagnosis. Under mild sedation, the patient was brought into the operating room and placed on the table in the supine position. IV antibiotics were given by the anesthesia team as preoperative surgical prophylaxis. MAC sedation was then performed by the anesthesiateam. A local field block was performed using 0.5% Marcaine plain. A pneumatic tourniquet was then placed about the right ankle. The operative extremity was then prepped and draped in the usual fashion. The extremity was then elevated and exsanguinated before the tourniquet was inflated to 250 mmHg. After inflation, the following procedure was then performed. Attention was directed to the right first metatarsophalangeal joint where a 6 cm incision was made using a #15 blade. Dissection was carried down to the level of orthopedic hardware. Dissection was carried out to expose the entire first metatarsal phalangeal joint plate. Screws from the plate were removed and passed from the operative field [place] was used to remove the plate from the first metatarsal arthrodesis site. Good arthrodesis was noted. Interfrag screw was also removed and passed from the operative field. Site was irrigated with copious amounts of sterile saline. No hardware remained. A sagittal bone saw was then used to perform an [place] osteotomy in standard fashion. The hallux was noted to sit in a more rectus position and it was fixated using a 13 x 10 mm staple. Good positioning of the estrellita confirmed clinically as well as on C- arm imaging. Attention was directed to the right foot second digit where a 6 cm incision was made using a #15 blade from the proximal interphalangeal joint to the level of the metatarsophalangeal joint. Dissection was carried down to the second tarsal phalangeal joint capsule which was incised to expose the underlying head of second metatarsal. A sagittal bone saw was used to perform a Dora osteotomy in standard fashion. The segmented tarsal was positioned to the appropriate position to restore metatarsal parabola. This was temporarily fixated with a guidewire before a 2.0 snap off screw was used to permanently fixate the area. The extensor tendon was lengthened in Z fashion before attention was directed to the proximal interphalangeal joint. Sagittal bone saw was used to resect the head of the proximal phalanx and base of the intermediate phalanx. Dissection was carried out the plantar aspect of the second digit through the dorsal incision to expose the long flexor tendon. This was isolated and transected as distally as possible before being split longitudinally and wraparound the dorsal aspect of the proximal phalanx. A 0.065 K wire was then driven out the distal aspect of the toe through the base of the intermediate phalanx before being driven in retrograde fashion back into the proximal phalanx and head of second metatarsal. 2-0 Ethibond was used to reapproximate the long flexor tendon on the dorsal aspect of the proximal phalanx. It was also tenodesed to the long extensor tendon. The site was irrigated with copious amounts of sterile saline. Attention was then directed to closure of both incisions. Deep tissue was closed with 3-0 Vicryl followed by skin closure with 4-0 nylon in horizontal mattress and running interlocking fashion. The second pin was bent and capped using a [employer] ball. Attention was directed to the right foot fourth metatarsal area where a stab incision was made on the lateral aspect of the fourth metatarsal. A Wanda bur was then inserted into this incision along the lateral cortex of the fourth metatarsal. A distal metatarsal osteotomy was made through the neck of the fourth metatarsal to float the metatarsal head and offload the ball of the foot. Good positioning of the metatarsal head was noted. This incision was closed with 4-0 nylon. The tourniquet was let down and good hyperemic response was noted to all digits of the right foot. Incisions were dressed with Xeroform, 4 x 4 gauze, Kerlix, Shorty. Patient was placed in a cam boot. The patient tolerated the procedure and anesthesia well and without complication. The patient was transported from the operating room to the recovery room with vital signs stable and vascular status intact to all digits of the right foot. The patient was given both written and verbal instructions to remain weightbearing as tolerated in cam boot to the operative extremity, to keep dressings/splint clean, dry and intact and to take pain medication as directed. The patient will follow-up in the outpatient setting at their scheduled appointment. The patient was discharged with my personal number and was instructed to call if any questions or issues should arise. They were discharged home once anesthesia criteria was met.
--- NOTE | 2024-07-02 08:45 | W.PM.BPON ---
Date of procedure: 07/02/2024 Pre-op diagnosis: Orthopedic hardware right foot, right foot second digit hammertoe, metatarsalgia, hallux valgus Post-op diagnosis: Same Post-op findings: Hallux valgus, hammertoe second digit, prominent metatarsal heads right foot Procedure done: 1. Hardware removal right foot 2. Mina osteotomy right foot 3. Second metatarsal Dora osteotomy right foot 4. Second digit proximal interphalangeal joint arthrodesis right foot 5. Flexor to extensor tendon transfer right foot second digit 6. Right foot fourth metatarsal distal metatarsal osteotomy Implants: 2.0 snap off screw [employer], 13 x 10 [place] staple [employer], 0.065 K wire Specimens removed: None Surgeon: ABRAHAM HicksM Experimental Mechanic: Juan Antonio Estimated blood loss: 5 cc Tourniquet time: 71 minutes Complications: None
--- NOTE | 2024-07-02 09:55 | ANE.PACU2 ---
Inpatient post-anesthesia follow up: Airway intact: Yes Vital signs: Temperature 97.5 F Pulse Rate 79 Respiratory Rate 18 Blood Pressure 152/101 Pulse Oximetry 97 Oxygen Delivery Me thod Room Air Oxygen Flow Rate Fraction of Inspir ed Oxygen Hydration adequate: Yes Nausea and vomiting: No Pain level: 1 Mental status: Baseline
== END 2024-07-02 09:54 | disposition home or self-care (01) ==
PROVIDERS: PCP Nurse Practitioner; Visit Provider Podiatrist Foot & Ankle Surgery
PROC: (CPT 27691; principal; 2024-07-02 07:00)
PROC: (CPT 28298; 2024-07-02 07:00)
PROC: (CPT 28285; 2024-07-02 07:00)
PROC: (CPT 28740; 2024-07-02 07:00)
PROC: (CPT 27691; 2024-07-02 07:00)
PROC: (CPT 27691; 2024-07-02 07:00)
DX: M77.41 Metatarsalgia, right foot (principal); M20.41 Other hammer toe(s) (acquired), right foot; M20.11 Hallux valgus (acquired), right foot; J44.9 Chronic obstructive pulmonary disease, unspecified; I11.0 Hypertensive heart disease with heart failure; Q82.8 Other specified congenital malformations of skin; I50.9 Heart failure, unspecified; Z79.899 Other long term (current) drug therapy; Z88.5 Allergy status to narcotic agent; Z88.0 Allergy status to penicillin
CPT/HCPCS: 27691; 20680; 28308 ×2; 28285; 28310; 73630; 76000; C1713; J2250; J2405; J2704; J3010; J3490; J7030; J9999

== ENCOUNTER → 2024-07-17 09:11 | Outpatient (BNVA) | payer MEDICAID, SELFPAY | PROVIDERS: PCP Nurse Practitioner; Visit Provider Podiatrist Foot & Ankle Surgery | DX: M79.671 Pain in right foot (principal) | CPT/HCPCS: 73630 ==

== ENCOUNTER → 2024-07-26 09:11 | Outpatient (BNVA) | payer MEDICAID, SELFPAY | PROVIDERS: PCP Nurse Practitioner; Visit Provider Podiatrist Foot & Ankle Surgery | DX: M77.41 Metatarsalgia, right foot (principal); Q82.8 Other specified congenital malformations of skin | CPT/HCPCS: 73630 ==

== ENCOUNTER → 2024-08-13 13:09 | Outpatient (BNVA) | payer MEDICAID, SELFPAY | PROVIDERS: PCP Nurse Practitioner; Visit Provider Podiatrist Foot & Ankle Surgery | DX: Z98.890 Other specified postprocedural states (principal); Q82.8 Other specified congenital malformations of skin | CPT/HCPCS: 73630 ==

== ENCOUNTER 2024-08-20 09:01 | Outpatient (CLI) | payer MEDICAID, SELFPAY ==
--- NOTE | 2024-08-20 | ECG_ITS ---
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 Interpretive Statements Lung unchanged pre/post procedure Intraprocedure shortess of breath Symptoms resoled by discharge PROCEDURE: The baseline electrocardiogram showed normal sinus rhythm with normal ST-Ts. Poor R wave progression. At the baseline, the patient's blood pressure was 146/96 mm Hg with a heart rate of 89. The patient exercised for 4 minutes and 30 seconds on a standard Rai protocol. Patient attained a maximum heart rate of 167 beats per minute(107% of the maximum predicted heart rate) with a blood pressure at the peak exercise of 160/109mm Hg. The EKG at the peak exercise revealed frequent sublingual ectopics and PVCs. Patient did [not have any chest pain or significant ST-T changes Sestamibi was injected 1 minute prior to the peak exercise During the recovery phase, there were no new changes. Blood pressure at the end of the recovery phase was 140/95 mm Hg with a heart rate of 90 per minute. CONCLUSION: 1. Nonspecific EKG changes with the treadmill exercise. 2. Exercise-induced atrial arrhythmia and PVCs 3. Impaired exercise tolerance, attained a maximum of 7.0 METs 4. Sestamibi/Sestamibi perfusion results pending; see separate report. Electronically Signed On 08-27-2024 16:50:03 CDT by Alfie Buck M.D. [email or web address]
--- NOTE | 2024-08-20 09:12 | NMCV_ITS ---
NM stacey perf SPECT r/s* [id number] Denae Cuello Age: 64 Gender: F : 1960 Exam Date: 08/20/2024 10:11 Ordering Phys: Alfie Buck MD ([email or web address]) Technologist: MABEL Mcdaniels Exam Location: [facility] Indications: cp STRESS TEST Please see separate stress test report in [facility] for full findings IMAGE PROTOCOL Rest/Stress 1 Exercise Day Radiopharmaceutical Dose (mCi) Administration Site Administered by Rest: Tc-99m 10.6 IV Ifeoma Martines OFFICE CLINICIAN Sestamibi Stress:Tc-99m 32.6 IV Ifeoma Martines, OFFICE CLINICIAN Sestamibi Rest: 20-Aug-2024 60 Discovery 630 Stress: 20-Aug-2024 30 Discovery 630 Radiopharmaceutical was injected at 89 % maximum heart rate. Images obtained in supine and prone position. SPECT RESULTS Technical Quality: Good Raw Data Analysis: Normal Image Corrections: No attenuation or motion correction applied Summed Stress Score: 0 Summed Rest Score: 4 Summed Difference Score: 0 PERFUSION FINDINGS Fairly uniform myocardial tracer uptake with no significant Perfusion normalities FUNCTIONAL RESULTS (calculated via Gated SPECT) Stress Image LV EF (%): 62 Stress EDV (mL):77 TID: 0.89 Stress ESV (mL):29 FUNCTIONAL FINDINGS: Segmental wall motion analysis revealing no gross wall motion abnormalities IMPRESSIONS 1. Myocardial perfusion imaging revealing fairly uniform myocardial tracer uptake with no significant Perfusion abnormalities 2. Normal LV ejection fraction of 62%. 3. LV wall motion analysis revealing no gross wall motion abnormalities. 4. Normal LV volume Low probability for coronary ischemia, based on the above findings Dr Alfie Buck MD FACC (Electronically Signed) Final Date: 20 August 2024 12:33 S
[2024-08-20 11:04] VITALS: BP 140/89; PULSE 93
== END 2024-08-20 09:02 | disposition home or self-care (01) ==
LOC: CDL 09:02
PROVIDERS: PCP Nurse Practitioner; Visit Provider Internal Medicine Cardiovascular Disease
DX: Z98.61 Coronary angioplasty status (principal); R93.1 Abnormal findings on diagnostic imaging of heart and coronary circulation
CPT/HCPCS: 36415; 78452; 93017; A9500

== ENCOUNTER → 2024-09-27 14:22 | Outpatient (BNVA) | payer MEDICAID, SELFPAY | PROVIDERS: PCP Nurse Practitioner; Visit Provider Orthopaedic Surgery | DX: M25.511 Pain in right shoulder (principal); G89.29 Other chronic pain | CPT/HCPCS: 73030 ==

== ENCOUNTER 2024-11-30 07:47 | Outpatient (CLI) | payer MEDICAID, SELFPAY ==
--- NOTE | 2024-11-30 08:00 | MR_ITS ---
WS: [id number] MRI RIGHT SHOULDER HISTORY: Right shoulder pain COMPARISON: Radiograph 09/27/2024 TECHNIQUE: Multiplanar sequences of the shoulder joint are submitted. Severe AC joint arthritis. Fluid along the AC joint. Moderate amount of fluid in the subacromial and subdeltoid bursa. Fluid is slightly complex. Osteophyte encroachment upon the myotendinous portion of the supraspinatus. Moderate subacromial impingement on the distal supraspinatus. No os acromion. Biceps tendon present in the bicipital groove but the biceps tendon is very small caliber with intermediate signal and fluid within the tendon sheath. Small cysts in the lesser tuberosity abut the biceps tendon near the bicipital groove. Slightly high riding humeral head. Loss of cartilage with cortical surface irregularity surrounding the humeral head. Moderate atrophy of the supraspinatus muscle. Loss of the normal tendon over the superior lateral humeral head. There is full-thickness tear. Retraction of the tendon to the superior humeral head with fraying along the surfaces of the tear. Marked tendinopathy of the distal subscapularis tendon. Highly suspicious for focal tearing in the coracohumeral interval where there is loss of the normal signal. Increased T2 signal within the distal teres minor and the infraspinatus tendon insertion sites. No tendon retraction. Fluid extending along the subscapular bursa. Superior labrum is torn. There is abnormal signal throughout the superior labrum in the normal configuration is not present. The entire labrum is poorly visualized. MR/MR shoulder RT wo con* [id number] IMPRESSION: 1. Severe AC joint arthritis. 2. Moderate subacromial impingement. 3. Complete tear of the distal biceps tendon with fraying along the torn surfa jay and retraction to the superior humeral head. 4. Suspect subscapularis tendon tear at the coracohumeral interval. There is a dditional tendinopathy throughout the tendon. 5. Increased T2 signal at the insertion sites of the infraspinatus tendon and the teres minor. Highly suspicious for insertion site tears. 6. Moderate atrophy supraspinatus muscle. 7. Small caliber biceps tendon in the bicipital groove with intermediate signa l. Additional fluid in the tendon sheath from tenosynovitis. 8. Biceps tendon is not identified in the rotator cuff interval. 9. Torn superior labrum. The remaining labrum is also abnormal signal and poor ly visualized. 10. Moderate arthropathy at the glenohumeral joint.
== END 2024-11-30 07:48 | disposition home or self-care (01) ==
LOC: RAD 07:50
PROVIDERS: PCP Nurse Practitioner; Visit Provider Orthopaedic Surgery
DX: M25.511 Pain in right shoulder (principal)
CPT/HCPCS: 73221

== ENCOUNTER → 2025-01-15 11:15 | Outpatient (BNVA) | payer MEDICARE, MEDICAID, SELFPAY | PROVIDERS: PCP Nurse Practitioner; Visit Provider Podiatrist Foot & Ankle Surgery | DX: Q82.8 Other specified congenital malformations of skin (principal) | CPT/HCPCS: 99213 ==

== ENCOUNTER → 2025-02-14 13:42 | Outpatient (BNVA) | payer MEDICARE, SELFPAY | PROVIDERS: PCP Nurse Practitioner; Visit Provider Orthopaedic Surgery | DX: Z51.89 Encounter for other specified aftercare (principal); S46.211A Strain of muscle, fascia and tendon of other parts of biceps, right arm, initial encounter; S46.811A Strain of other muscles, fascia and tendons at shoulder and upper arm level, right arm, initial encounter; X58.XXXA Exposure to other specified factors, initial encounter | CPT/HCPCS: 99213 ==

== ENCOUNTER → 2025-02-21 09:54 | Outpatient (BNVA) | payer MEDICARE, SELFPAY | PROVIDERS: PCP Nurse Practitioner; Visit Provider Podiatrist Foot & Ankle Surgery | DX: Q82.8 Other specified congenital malformations of skin (principal) | CPT/HCPCS: 99213 ==